=== PATIENT | male | born 1955 | race Caucasian/White ===

== ENCOUNTER 2016-05-25 17:40 | Emergency (ER) | payer OTHER ==
[2016-05-25 20:19] LABS: BASO % 0.3 % (0.2-1.2); EOS # 0.2 10_X3_uL (0.0-0.5); EOS % 1.9 % (0.8-7.0); GRAN # 6.7 10_X3_uL (1.8-5.4); GRAN % 75.2 % (34.0-67.9); HEMATOCRIT 31.6 % (40-51); HEMOGLOBIN 9.9 g/dL (13.7-17.5); LYMPH # 1.3 10_X3_uL (1.3-3.6); LYMPH % 14.3 % (21.8-53.1); MEAN CORPUSCULAR HEMOGLOBIN 26.2 pg (27.0-33.0); MEAN CORPUSCULAR HGB CONC 31.3 g/dL (32.0-36.0); MEAN CORPUSCULAR VOLUME 83.6 fL (79-92); MEAN PLATELET VOLUME 9.4 fl (7.5-11.5); MONO # 0.7 10_X3_uL (0.3-0.8); MONO % 8.3 % (5.3-12.2); PLATELET COUNT 340 x10_3/uL (163-337); RED BLOOD COUNT 3.78 x10_6/uL (4.6-6.1); RED CELL DISTRIBUTION WIDTH 17.3 % (11.6-14.4); WHITE BLOOD COUNT 8.9 x10_3/uL (4.2-9.1)
[2016-05-25 20:39] LABS: ALKALINE PHOSPHATASE 132 U/L (50-136); ALT/SGPT 24 U/L (7.53-40.17); AST/SGOT 21 U/L (6.66-35.34); BILIRUBIN,TOTAL 0.16 mg/dL (0.0-1.0); BLOOD UREA NITROGEN 23 mg/dL (7-18); CALCIUM 8.9 mg/dL (8.7-10.7); CARBON DIOXIDE 19 mmol/L (21-32); CREATININE 1.1 mg/dL (0.6-1.3); ETHYL ALCOHOL 25 mg/dl; GLUCOSE,RANDOM 113 mg/dL (70-99); POTASSIUM 3.9 mmol/L (3.5-5.1); SODIUM 139 mmol/L (136-145); TOTAL PROTEIN 7.1 gm/dL (6.4-8.2)
[2016-05-25 20:41] LABS: ACETAMINOPHEN < 15.0 ug/ml (10.0-30.0)
== END 2016-05-26 00:55 | disposition home or self-care (01) ==
LOC: ER 17:40
PROVIDERS: Emergency Medicine
DX: S01.00XA Unspecified open wound of scalp, initial encounter (principal); Y09 Assault by unspecified means; Y92.129 Unspecified place in nursing home as the place of occurrence of the external cause; F20.9 Schizophrenia, unspecified; Z85.820 Personal history of malignant melanoma of skin
CPT/HCPCS: 36415; 80053; 80307; 85025; 99283; G0480